=== PATIENT | male | born 1970 | race Caucasian/White ===

== ENCOUNTER → 2017-02-01 | Outpatient (REF) | payer OTHER | LOC: M SFHCPLAZ 13:25 | PROVIDERS: ATTEND Family Medicine | DX: E78.5 Hyperlipidemia, unspecified (principal) ==

== ENCOUNTER → 2017-02-14 | Outpatient (CLI) | payer BC, OTHER | LOC: M LAB 09:06 | PROVIDERS: ATTEND Family Medicine | DX: E78.5 Hyperlipidemia, unspecified (principal) ==

== ENCOUNTER → 2017-07-15 | Outpatient (CLI) | payer OTHER ==
[2017-07-15 19:28] LABS: BLOOD UREA NITROGEN 11 MG/DL (7-18); CREATININE FOR GFR 1.04 MG/DL (0.70-1.30); GLOMERULAR FILTRATION RATE > 60.0 (>60); URIC ACID 5.5 MG/DL (3.5-7.2)
== END ==
LOC: M ADAMS 16:03
PROVIDERS: ATTEND Physician Assistant Medical
DX: M25.571 Pain in right ankle and joints of right foot (principal)

== ENCOUNTER → 2017-07-22 | Outpatient (REF) | payer OTHER ==
[2017-07-22 11:28] LABS: BASO # 0.1 10^3/uL (0.0-0.2); BASO % 0.9 % (0.0-1.0); EOS # 0.2 10^3/uL (0.0-0.50); EOS % 2.7 % (0.0-3.0); IMMATURE GRANULOCYTE % 0.1 % (0-0); LYMPH # 1.8 10^3/uL (1.5-4.5); LYMPH % 21.8 % (24.0-44.0); MEAN CORPUSCULAR HEMOGLOBIN 29.5 pg (27.0-33.0); MEAN CORPUSCULAR HGB CONC 32.8 g/dl (32.0-36.5); MONO # 0.7 10^3/uL (0.0-0.8); MONO % 8.8 % (0.0-5.0); NEUTROPHILS # 5.3 10^3/uL (1.8-7.7); NEUTROPHILS % 65.7 % (36.0-66.0); PLATELET COUNT, AUTOMATED 310 10^3/uL (150-450); RED CELL DISTRIBUTION WIDTH 12.2 % (11.5-14.5)
[2017-07-22 11:39] LABS: ANION GAP 4 MEQ/L (8-16); BLOOD UREA NITROGEN 10 MG/DL (7-18); CALCIUM LEVEL 8.6 MG/DL (8.5-10.1); CARBON DIOXIDE LEVEL 30 MEQ/L (21-32); CHLORIDE LEVEL 106 MEQ/L (98-107); GLOMERULAR FILTRATION RATE > 60.0 (>60); GLUCOSE, FASTING 87 MG/DL (70-105); POTASSIUM SERUM 4.9 MEQ/L (3.5-5.1); SODIUM LEVEL 140 MEQ/L (136-145)
[2017-07-22 11:56] LABS: ERYTHROCYTE SEDIMENTATION RATE 1 mm/hr (0-15)
== END ==
LOC: M SFHCPLAZ 08:55
DX: M10.9 Gout, unspecified (principal)

== ENCOUNTER → 2017-08-02 | Outpatient (REF) | payer OTHER ==
[2017-08-02 20:50] LABS: URIC ACID 6.2 MG/DL (3.5-7.2)
== END ==
LOC: M SFHCPLAZ 13:34
DX: M10.9 Gout, unspecified (principal)

== ENCOUNTER → 2018-05-02 | Outpatient (REF) | payer OTHER | LOC: M SFHCPLAZ 15:41 | DX: Z13.220 Encounter for screening for lipoid disorders (principal); Z68.30 Body mass index [BMI] 30.0-30.9, adult; Z12.5 Encounter for screening for malignant neoplasm of prostate ==

== ENCOUNTER → 2018-05-15 | Outpatient (CLI) | payer BC, OTHER ==
[2018-05-15 06:59] LABS: ESTIMATED AVERAGE GLUCOSE 100 MG/DL (60-110); HEMOGLOBIN A1c 5.1 %
[2018-05-15 07:19] LABS: ALBUMIN 3.8 GM/DL (3.2-5.2); ALBUMIN/GLOBULIN RATIO 1.27 (1.00-1.93); ALKALINE PHOSPHATASE 59 U/L (45-117); ALT/SGPT 41 U/L (12-78); ANION GAP 9 MEQ/L (8-16); AST/SGOT 43 U/L (7-37); BILIRUBIN,TOTAL 0.5 MG/DL (0.2-1.0); BLOOD UREA NITROGEN 12 MG/DL (7-18); CALCIUM LEVEL 8.9 MG/DL (8.5-10.1); CARBON DIOXIDE LEVEL 27 MEQ/L (21-32); CHLORIDE LEVEL 108 MEQ/L (98-107); CHOLESTEROL LEVEL 241 MG/DL (<200); CREATININE FOR GFR 1.01 MG/DL (0.70-1.30); GLOMERULAR FILTRATION RATE > 60.0 (>60); GLUCOSE, FASTING 90 MG/DL (70-100); HDL CHOLESTEROL 50 MG/DL (>40); LDL CHOLESTEROL 164 MG/DL (<100); NON-HDL-C 191 MG/DL; POTASSIUM SERUM 4.2 MEQ/L (3.5-5.1); PSA SCREENING 0.94 NG/ML (< 4.0); SODIUM LEVEL 144 MEQ/L (136-145); TOTAL PROTEIN 6.8 GM/DL (6.4-8.2); TRIGLYCERIDES LEVEL 135 MG/DL (<150)
== END ==
LOC: M LAB 06:10
DX: Z13.220 Encounter for screening for lipoid disorders (principal)
CPT/HCPCS: 80053

== ENCOUNTER 2018-06-23 07:52 | Day surgery (SDC) | payer BC, OTHER ==
[~2018-06-23 07:52] MED LIST: LIDOCAINE 2% INJ 100 MG/5 ML SDV (FOR ANES.) As Ordered; PROPOFOL 200 MG/20 ML VIAL As Ordered
[2018-06-23] MEDS: NS 1,000 ML IV (08:00)
[2018-06-23] MEDS ORDERED: PROPOFOL 200 MG/20 ML VIAL As Ordered (09:11)
== END 2018-06-23 09:50 | disposition home or self-care (01) ==
LOC: M OPP 07:52
DX: Z12.11 Encounter for screening for malignant neoplasm of colon (principal); K63.5 Polyp of colon; K64.8 Other hemorrhoids; K64.4 Residual hemorrhoidal skin tags; L40.52 Psoriatic arthritis mutilans; M10.9 Gout, unspecified; R12 Heartburn; Z79.82 Long term (current) use of aspirin
CPT/HCPCS: 45380

== ENCOUNTER → 2018-09-15 | Outpatient (CLI) | payer BC, OTHER ==
[~2018-09-15] MED LIST changes: +ASPI81TA85 PO; +FISH7.5C PO; -LIDOCAINE 2% INJ 100 MG/5 ML SDV (FOR ANES.) As Ordered; -PROPOFOL 200 MG/20 ML VIAL As Ordered; +VITA100066 PO; +VITATAB11 PO
--- NOTE | 2018-09-15 13:57 | REP ---
LUMBAR SPINE, EIGHT VIEWS: HISTORY: Back pain. There is no acute fracture. The L3-4 through L5-S1 intervertebral discs are decreased in height, consistent with disc degeneration. Osteophytes are present on L4 and L5. The facet joints are normal in appearance. There are 4 mm of retrolisthesis of L5 on S1. This is unchanged with flexion and extension. IMPRESSION: Degenerative change, as described above. Electronically Signed by Trent Alexander MD 09/15/2018 02:02 P
== END ==
LOC: M ADAMS 11:58
PROVIDERS: ATTEND Student in an Organized Health Care Education/Training Program
DX: M54.5 Low back pain (principal)

== ENCOUNTER → 2018-09-23 | Outpatient (CLI) | payer BC, OTHER ==
--- NOTE | 2018-09-25 10:30 | REP ---
MRI lumbar spine without contrast: History: Lumbar radiculopathy. Decreased patellar reflex. Comparison radiographs: September 15, 2018. Technique: Sagittal and axial T1 and T2-weighted scans are acquired in the usual fashion with and without fat saturation. Sequences include spin echo, turbo spin-echo, and STIR imaging sequences. MRI findings: No extra vertebral abnormality. Lumbar vertebral body heights are preserved. There is some straightening of the normal lumbar lordosis. The tip of the conus is normal in position and appearance at T12-L1. Axial and sagittal images at the L1-2 disc level demonstrate no significant abnormality. At L2-3, there is no abnormality. At L3-4, there is some disc space narrowing and desiccation consistent with degenerative disc disease. Minimal diffuse disc bulging is present. No neural foraminal narrowing or central canal stenosis is noted. At L4-5, there is degenerative disc narrowing and mild diffuse disc bulging. There is mild to moderate facet and ligamentum flavum hypertrophy bilaterally at L4-5. No neural foraminal narrowing is seen. At L5-S1, there is a right paracentral focal disc protrusion with caudal extension and moderate thecal sac compression. Right S1 nerve root is compressed as it exits thecal sac. There is mild overall central canal narrowing due to the disc protrusion. There is mild bilateral facet hypertrophy. Impression: There are degenerative disc changes at the L3-4 and L4-5 and L5-S1. The dominant abnormality however is a [id number] right paracentral L5-S1 disc protrusion with caudal extension and moderate thecal sac compression. Right S1 nerve root compression. Electronically Signed by Morales Acuna MD 09/25/2018 12:48 P
== END ==
LOC: M RAD 14:50
PROVIDERS: ATTEND Student in an Organized Health Care Education/Training Program
DX: R29.2 Abnormal reflex (principal); M54.16 Radiculopathy, lumbar region

== ENCOUNTER → 2018-10-18 | Outpatient (CLI) | payer BC, OTHER ==
--- NOTE | 2018-10-18 13:58 | REP ---
LUMBAR SPINE, SEVEN VIEWS: HISTORY: Instability. COMPARISON: 09/15/2018 There is no acute fracture. The L3-4 through L5-S1 intervertebral discs are decreased in height consistent with disc degeneration. Osteophytes are present on L4 and L5. The facet joints are normal in appearance. There are 4 mm of retrolisthesis of L5 on S1 unchanged with flexion and extension. IMPRESSION: Degenerative change as described above. There is no change compared to the previous study. Electronically Signed by Trent Alexander MD 10/18/2018 02:07 P
== END ==
LOC: M ADAMS 11:39
PROVIDERS: ATTEND Family Medicine
DX: M25.78 Osteophyte, vertebrae (principal); M51.87 Other intervertebral disc disorders, lumbosacral region; M51.86 Other intervertebral disc disorders, lumbar region

== ENCOUNTER → 2020-10-09 | Outpatient (REF) | payer OTHER ==
[~2020-10-09] MED LIST changes: -ASPI81TA85 PO; +ASPI81TA86 PO
[2020-10-09 12:46] LABS: BASO # 0.1 10^3/uL (0.0-0.2); BASO % 0.8 % (0.0-1.0); EOS # 0.2 10^3/uL (0.0-0.5); EOS % 2.4 % (0.0-3.0); HEMATOCRIT 48.5 % (42.0-52.0); HEMOGLOBIN 15.8 g/dl (13.5-17.5); LYMPH % 26.6 % (24.0-44.0); MEAN CORPUSCULAR HEMOGLOBIN 28.9 pg (27.0-33.0); MEAN CORPUSCULAR HGB CONC 32.6 g/dl (32.0-36.5); MEAN CORPUSCULAR VOLUME 88.8 fl (80.0-96.0); MONO # 0.9 10^3/uL (0.0-0.8); MONO % 11.6 % (2.0-8.0); NEUTROPHILS # 4.5 10^3/uL (1.5-8.5); NEUTROPHILS % 58.5 % (36.0-66.0); PLATELET COUNT, AUTOMATED 256 10^3/uL (150-450); RED BLOOD COUNT 5.46 10^6/uL (4.30-6.10); WHITE BLOOD COUNT 7.6 10^3/uL (4.0-10.0)
[2020-10-09 13:12] LABS: ALBUMIN 3.9 GM/DL (3.2-5.2); ALT/SGPT 57 U/L (12-78); BILIRUBIN,TOTAL 0.3 MG/DL (0.2-1.0); BLOOD UREA NITROGEN 13 MG/DL (7-18); CALCIUM LEVEL 9.2 MG/DL (8.5-10.1); CARBON DIOXIDE LEVEL 30 MEQ/L (21-32); CHLORIDE LEVEL 106 MEQ/L (98-107); CHOLESTEROL LEVEL 258 MG/DL (<200); CHOLESTEROL RISK RATIO 5.733 (<5); CREATININE FOR GFR 0.86 MG/DL (0.70-1.30); GLOMERULAR FILTRATION RATE > 60.0 (>56); GLUCOSE, FASTING 88 MG/DL (70-100); HDL CHOLESTEROL 45 MG/DL (>40); LDL CHOLESTEROL 182 MG/DL (<100); LIPASE 129 U/L (73-393); NON-HDL-C 213 MG/DL; POTASSIUM SERUM 4.2 MEQ/L (3.5-5.1); SODIUM LEVEL 141 MEQ/L (136-145); TOTAL PROTEIN 7.1 GM/DL (6.4-8.2); TRIGLYCERIDES LEVEL 154 MG/DL (<150)
== END ==
LOC: M SFHCPLAZ 08:16 → M SFHCADAM 08:23
PROVIDERS: ATTEND Family Medicine
DX: R10.13 Epigastric pain (principal); E78.5 Hyperlipidemia, unspecified

== ENCOUNTER → 2021-01-16 | Outpatient (CLI) | payer BC, OTHER ==
--- NOTE | 2021-01-20 13:32 | SLEEPHOME ---
DATE: 01/16/2021 ORDERED BY: Dr. Toñito Andrade Diagnostic home sleep testing was performed due to concern for the obstructive sleep apnea syndrome. For testing, a nocturnal T3 respiratory monitoring device was used. Continuous record was made of pulse, oxygen saturation, air flow, chest and abdominal strain, and body position. There was 9 hours and 59 minutes of data reviewed. There was 7 hours and 33 minutes marked as time in bed. During the interval marked time in bed, there were 139 respiratory events identified of 10 seconds in duration or greater for a respiratory event index of 18.4. The events were primarily obstructive. Baseline pulse rate 54. Pulse rate ranged 44-92. Baseline saturation 95%. Saturations fell to 83%. Testing was performed in both the supine and nonsupine positions. IMPRESSION: Abnormal home sleep testing with repetitive respiratory events and oxygen desaturations to 83% with a respiratory event index of 18.4 is consistent with the obstructive sleep apnea syndrome. RECOMMENDATION: The patient should be encouraged to undergo formal sleep evaluation.
== END ==
LOC: M SLEEP HO 14:16
PROVIDERS: ATTEND Internal Medicine Cardiovascular Disease
DX: G47.33 Obstructive sleep apnea (adult) (pediatric) (principal)

== ENCOUNTER → 2022-07-08 | Outpatient (REF) | payer BC, OTHER ==
[~2022-07-08] MED LIST changes: +FISH10005 PO; -FISH7.5C PO
[2022-07-08 15:00] LABS: URIC ACID 5.8 MG/DL (3.7-9.2)
[2022-07-08 15:02] LABS: C REACTIVE PROTEIN QUANTITATIV < 0.40 MG/DL (<1.0)
== END ==
LOC: M LAB REF 12:18
PROVIDERS: ATTEND Internal Medicine
DX: M25.50 Pain in unspecified joint (principal); M10.9 Gout, unspecified

== ENCOUNTER → 2022-09-24 | Outpatient (REF) | payer BC, OTHER ==
[2022-09-24 20:09] LABS: ALBUMIN 4.1 G/DL (3.2-5.2); ALKALINE PHOSPHATASE 68 U/L (46-116); ALT/SGPT 39 U/L (7.0-40); AST/SGOT 48 U/L (<34); BILIRUBIN,TOTAL 0.4 MG/DL (0.3-1.2); BLOOD UREA NITROGEN 11 MG/DL (9-23); CALCIUM LEVEL 9.3 MG/DL (8.5-10.1); CARBON DIOXIDE LEVEL 27 MMOL/L (20-31); CHLORIDE LEVEL 103 MMOL/L (98-107); CREATININE FOR GFR 0.75 MG/DL (0.70-1.30); GLOMERULAR FILTRATION RATE > 60.0 (>56); GLUCOSE, FASTING 66 MG/DL (60-100); POTASSIUM SERUM 4.9 MMOL/L (3.5-5.1); SODIUM LEVEL 140 MMOL/L (136-145); TOTAL PROTEIN 6.9 G/DL (5.7-8.2)
[2022-09-24 20:11] LABS: BASO # 0.1 10^3/uL (0.0-0.2); BASO % 1.1 % (0.0-1.0); EOS # 0.2 10^3/uL (0.0-0.5); EOS % 2.1 % (0.0-3.0); HEMATOCRIT 45.8 % (42.0-52.0); HEMOGLOBIN 14.7 g/dl (13.5-17.5); LYMPH % 22.6 % (24.0-44.0); MEAN CORPUSCULAR HEMOGLOBIN 29.3 pg (27.0-33.0); MEAN CORPUSCULAR HGB CONC 32.1 g/dl (32.0-36.5); MEAN CORPUSCULAR VOLUME 91.2 fl (80.0-96.0); MONO # 0.8 10^3/uL (0.0-0.8); MONO % 9.3 % (2.0-8.0); NEUTROPHILS # 5.7 10^3/uL (1.5-8.5); NEUTROPHILS % 64.6 % (36.0-66.0); PLATELET COUNT, AUTOMATED 306 10^3/uL (150-450); RED BLOOD COUNT 5.02 10^6/uL (4.30-6.10); URIC ACID 5.4 MG/DL (3.7-9.2); WHITE BLOOD COUNT 8.8 10^3/uL (4.0-10.0)
[2022-09-24 20:30] LABS: ERYTHROCYTE SEDIMENTATION RATE 10 mm/hr (0-20)
== END ==
LOC: M LAB REF 19:27
PROVIDERS: ATTEND Internal Medicine Rheumatology
DX: L40.50 Arthropathic psoriasis, unspecified (principal); M1A.0710 Idiopathic chronic gout, right ankle and foot, without tophus (tophi); Z79.899 Other long term (current) drug therapy

== ENCOUNTER → 2023-09-07 | Outpatient (CLI) | payer BC, OTHER | LOC: M RAD 08:58 | PROVIDERS: ATTEND Internal Medicine | DX: I86.1 Scrotal varices (principal); N50.3 Cyst of epididymis ==